=== PATIENT | female | born 1955 | race Caucasian/White ===

== ENCOUNTER 2020-04-10 07:31 | Inpatient (IN) ==
[2020-04-10] MEDS ORDERED: Clindamycin 900 MG/50 ML 900 MG/50 ML IV.SOLN IVPB ONE (07:51)
[2020-04-10] MEDS ORDERED: Lidocaine -MPF 4% 5 ML AMPUL ONE (07:52)
[2020-04-10] MEDS ORDERED: Ringers Solution, Lactated 1,000 ML IVC SCH ×2 (08:00→08:45)
[2020-04-10] MEDS ORDERED: Acetaminophen IV 1,000 MG/100 ML BAG IVPB ONE (08:01)
[2020-04-10] MEDS ORDERED: *HR* Vasopressin 20 UNIT/ML VIAL ONE (08:01)
[2020-04-10] MEDS ORDERED: *HR* Magnesium Sulfate 1 GM/2 ML VIAL ONE (08:07)
[2020-04-10] MEDS ORDERED: *HR* Midazolam HCl 2 MG/2 ML VIAL ONE (08:14)
[2020-04-10] MEDS ORDERED: *HR* Rocuronium Bromide 50 MG/5 ML VIAL ONE ×2 (08:15→09:46)
[2020-04-10] MEDS ORDERED: Ondansetron 4 MG/2 ML VIAL ONE (08:15)
[2020-04-10] MEDS ORDERED: *HR* Succinylcholine 200 MG/10 ML VIAL IVP ONE (08:15)
[2020-04-10] MEDS ORDERED: Sugammadex Sodium 200 MG/2 ML VIAL IV ONE (08:15)
[2020-04-10] MEDS ORDERED: *HR* FentaNYL (PF) 100 MCG/2 ML VIAL ONE (08:15)
[2020-04-10] MEDS ORDERED: *HR* HYDROMORPHONE 2 MG/ML VIAL ONE (08:15)
[2020-04-10] MEDS ORDERED: Lidocaine -MPF 2% 2 ML VIAL ONE (08:15)
[2020-04-10] MEDS ORDERED: *HR* OxyCODONE Immed Rel 5 MG TABLET PO PRN (08:34)
[2020-04-10] MEDS ORDERED: Ondansetron 4 MG/2 ML VIAL IVP PRN ×2 (08:34→11:31)
[2020-04-10] MEDS: *HR* HYDROmorphone PF 0.5 MG/0.5 ML SYRINGE IVP PRN ×3 (10:57→11:08)
[2020-04-10] MEDS ORDERED: *HR* HYDROcodone/Acet 5/325 mg TABLET PO PRN (11:31)
[2020-04-10] MEDS ORDERED: Naloxone 0.4 MG/ML INJ IVP PRN (11:31)
[2020-04-10] MEDS ORDERED: Fluticasone Propionate Nasal 50 MCG/SPRAY BOTTLE NS PRN (11:31)
[2020-04-10] MEDS: 0.9 % Sodium Chloride 1,000 ML IVC SCH (12:13)
[2020-04-10] MEDS: Ketorolac 15 MG/ML VIAL IVP SCH ×2 (12:14→17:12)
[2020-04-10] MEDS: *HR* Heparin 5,000 UNIT/ML VIAL SQ SCH ×2 (14:44→21:11)
[2020-04-10] MEDS ORDERED: Gabapentin 300 MG CAPSULE PO SCH (15:00)
[2020-04-10] MEDS: Ipratropium/Albuterol Neb 3 ML IH SCH ×4 (15:09→23:22)
[2020-04-10] MEDS ORDERED: *HR* HYDROmorphone (PF) 1 MG/ML SYRINGE IVP ONE (16:54)
[2020-04-10] MEDS: Budesonide/Formoterol 160/4.5 1 PUFF INH IH SCH (19:46)
[2020-04-10] MEDS: Gabapentin 300 MG CAPSULE PO SCH (21:10)
[2020-04-10] MEDS: carBAMazepine 200 MG TABLET PO SCH (21:11)
[2020-04-10] MEDS: Famotidine 20 MG TABLET PO SCH (21:11)
[2020-04-10] MEDS: Sennosides/Docusate Sodium TABLET PO SCH (21:14)
[2020-04-10] MEDS: diazePAM 10 MG TABLET PO PRN (21:22)
[2020-04-10] MEDS: *HR* HYDROcodone/Acet 7.5/325 mg TABLET PO PRN (21:22)
[2020-04-11] MEDS: Ketorolac 15 MG/ML VIAL IVP SCH ×4 (00:08→18:17)
[2020-04-11] MEDS: 0.9 % Sodium Chloride 1,000 ML IVC SCH (00:09)
[2020-04-11 01:31] LABS: Hematocrit 38.4 % (35.3-44.9); Hemoglobin 12.2 g/dL (11.5-15.4); Mean Corpuscular HGB Conc 31.8 g/dL (31.6-35.5); Mean Corpuscular Hemoglobin 32.4 pg (28.0-33.3); Mean Corpuscular Volume 101.9 fL (83.0-100.0); Mean Platelet Volume 9.9 fL (9.4-12.4); Platelet Count 167 K/mcL (140-400); Red Blood Count 3.77 M/mcL (3.82-4.97); Red Cell Distribution Width 13.7 % (11.5-14.5); White Blood Count 9.6 K/mcL (4.3-11.1)
[2020-04-11 01:51] LABS: % Iron Saturation 11 % (15-50); BUN/Creatinine Ratio 22 (6-26); Blood Urea Nitrogen 15 mg/dL (8-23); Calcium 8.4 mg/dL (8.6-10.3); Carbon Dioxide 22 mEq/L (23-29); Chloride 106 mEq/L (98-107); Glucose 135 mg/dL (70-105); Iron 38 mcg/dL (50-170); Magnesium 2.1 mg/dL (1.6-2.6); Osmolality,Calculated 285 (280-300); Potassium 4.6 mEq/L (3.5-5.1); Sodium 136 mEq/L (136-145); Transferrin 239 mg/dL (203-362); eGFR For African Americans > 60 (> 60); eGFR For Non-African Americans > 60 (> 60)
[2020-04-11] MEDS: Ipratropium/Albuterol Neb 3 ML IH SCH ×6 (03:24→22:55)
[2020-04-11] MEDS: *HR* Heparin 5,000 UNIT/ML VIAL SQ SCH ×3 (05:57→20:50)
[2020-04-11] MEDS: Budesonide/Formoterol 160/4.5 1 PUFF INH IH SCH ×2 (07:23→19:48)
[2020-04-11] MEDS: Gabapentin 300 MG CAPSULE PO SCH ×3 (07:48→20:51)
[2020-04-11] MEDS: Sennosides/Docusate Sodium TABLET PO SCH ×2 (07:50→21:19)
[2020-04-11] MEDS: carBAMazepine 200 MG TABLET PO SCH ×2 (07:50→20:46)
[2020-04-11] MEDS: Famotidine 20 MG TABLET PO SCH ×2 (07:50→20:49)
[2020-04-11] MEDS: *HR* HYDROcodone/Acet 7.5/325 mg TABLET PO PRN (08:49)
[2020-04-11] MEDS ORDERED: Iron Sucrose Complex 400 MG in 0.9 % Sodium Chloride 250 ML IVPB ONE (11:25)
[2020-04-11] MEDS: diazePAM 10 MG TABLET PO PRN (20:47)
[2020-04-12] MEDS: Ketorolac 15 MG/ML VIAL IVP SCH ×4 (00:38→17:33)
[2020-04-12] MEDS: Ipratropium/Albuterol Neb 3 ML IH SCH ×6 (05:57→22:39)
[2020-04-12] MEDS: *HR* Heparin 5,000 UNIT/ML VIAL SQ SCH ×3 (06:01→20:45)
[2020-04-12] MEDS: Budesonide/Formoterol 160/4.5 1 PUFF INH IH SCH ×2 (07:44→19:31)
[2020-04-12] MEDS: carBAMazepine 200 MG TABLET PO SCH ×2 (08:08→20:45)
[2020-04-12] MEDS: Gabapentin 300 MG CAPSULE PO SCH ×3 (08:08→20:45)
[2020-04-12] MEDS: Famotidine 20 MG TABLET PO SCH ×2 (08:08→20:45)
[2020-04-12] MEDS: diazePAM 10 MG TABLET PO PRN ×2 (08:08→20:45)
[2020-04-12] MEDS: Sennosides/Docusate Sodium TABLET PO SCH ×2 (08:08→20:45)
[2020-04-12] MEDS: *HR* HYDROcodone/Acet 7.5/325 mg TABLET PO PRN ×2 (16:27→20:45)
[2020-04-12] MEDS: *HR* Acetylcysteine 20% 600 MG/3 ML ORAL SYRINGE PO SCH (20:45)
[2020-04-13] MEDS: Ketorolac 15 MG/ML VIAL IVP SCH ×5 (00:30→23:10)
[2020-04-13] MEDS: *HR* HYDROcodone/Acet 7.5/325 mg TABLET PO PRN ×2 (00:41→04:34)
[2020-04-13 01:15] LABS: Hemoglobin 12.1 g/dL (11.5-15.4); Mean Corpuscular Hemoglobin 32.4 pg (28.0-33.3); Mean Corpuscular Volume 101.6 fL (83.0-100.0); Red Blood Count 3.74 M/mcL (3.82-4.97); White Blood Count 9.6 K/mcL (4.3-11.1)
[2020-04-13 01:16] LABS: Mean Corpuscular HGB Conc 31.8 g/dL (31.6-35.5); Mean Platelet Volume 9.6 fL (9.4-12.4); Platelet Count 163 K/mcL (140-400); Red Cell Distribution Width 14.1 % (11.5-14.5)
[2020-04-13 01:31] LABS: BUN/Creatinine Ratio 19 (6-26); Blood Urea Nitrogen 12 mg/dL (8-23); Carbon Dioxide 24 mEq/L (23-29); Chloride 106 mEq/L (98-107); Glucose 117 mg/dL (70-105); Magnesium 2.1 mg/dL (1.6-2.6); Osmolality,Calculated 287 (280-300); Potassium 4.1 mEq/L (3.5-5.1); Sodium 138 mEq/L (136-145); eGFR For African Americans > 60 (> 60); eGFR For Non-African Americans > 60 (> 60)
[2020-04-13] MEDS: Ipratropium/Albuterol Neb 3 ML IH SCH ×6 (03:24→23:15)
[2020-04-13] MEDS: *HR* Heparin 5,000 UNIT/ML VIAL SQ SCH ×3 (06:21→23:05)
[2020-04-13] MEDS: Sennosides/Docusate Sodium TABLET PO SCH ×2 (07:32→19:57)
[2020-04-13] MEDS: diazePAM 10 MG TABLET PO PRN ×2 (07:32→19:26)
[2020-04-13] MEDS: *HR* Acetylcysteine 20% 600 MG/3 ML ORAL SYRINGE PO SCH ×2 (07:32→19:57)
[2020-04-13] MEDS: Gabapentin 300 MG CAPSULE PO SCH ×4 (07:32→19:57)
[2020-04-13] MEDS: carBAMazepine 200 MG TABLET PO SCH ×2 (07:32→19:57)
[2020-04-13] MEDS: Famotidine 20 MG TABLET PO SCH ×2 (07:32→19:57)
[2020-04-13] MEDS: Budesonide/Formoterol 160/4.5 1 PUFF INH IH SCH ×2 (07:35→20:06)
[2020-04-13] MEDS ORDERED: Furosemide 20 MG/2 ML VIAL IVP ONE (08:49)
[2020-04-13] MEDS: *HR* HYDROcodone/Acet 5/325 mg TABLET PO PRN (19:26)
[2020-04-13] MEDS: traZODone 50 MG TABLET PO PRN (19:57)
[2020-04-14] MEDS: *HR* HYDROcodone/Acet 5/325 mg TABLET PO PRN (02:12)
[2020-04-14] MEDS: Ipratropium/Albuterol Neb 3 ML IH SCH ×6 (03:26→23:06)
[2020-04-14] MEDS: *HR* Heparin 5,000 UNIT/ML VIAL SQ SCH ×3 (06:35→20:07)
[2020-04-14] MEDS: Ketorolac 15 MG/ML VIAL IVP SCH ×4 (06:35→22:56)
[2020-04-14] MEDS: Budesonide/Formoterol 160/4.5 1 PUFF INH IH SCH ×2 (08:00→19:41)
[2020-04-14] MEDS: *HR* Acetylcysteine 20% 600 MG/3 ML ORAL SYRINGE PO SCH ×2 (08:12→20:07)
[2020-04-14] MEDS: Famotidine 20 MG TABLET PO SCH ×2 (08:41→20:06)
[2020-04-14] MEDS: carBAMazepine 200 MG TABLET PO SCH ×2 (08:41→20:06)
[2020-04-14] MEDS: Sennosides/Docusate Sodium TABLET PO SCH ×2 (08:41→20:06)
[2020-04-14] MEDS: Gabapentin 300 MG CAPSULE PO SCH ×3 (08:41→20:06)
[2020-04-14] MEDS ORDERED: Furosemide 20 MG TABLET PO ONE (09:00)
[2020-04-14] MEDS: Azithromycin 500 MG in 0.9 % Sodium Chloride 250 ML IVPB SCH (10:50)
[2020-04-14] MEDS: diazePAM 10 MG TABLET PO PRN (20:07)
[2020-04-14] MEDS: traZODone 50 MG TABLET PO PRN (22:56)
[2020-04-15] MEDS: Ipratropium/Albuterol Neb 3 ML IH SCH ×4 (03:32→15:56)
[2020-04-15] MEDS: Ketorolac 15 MG/ML VIAL IVP SCH ×2 (05:21→12:53)
[2020-04-15] MEDS: *HR* Heparin 5,000 UNIT/ML VIAL SQ SCH ×2 (05:22→12:53)
[2020-04-15] MEDS: Budesonide/Formoterol 160/4.5 1 PUFF INH IH SCH (07:15)
[2020-04-15] MEDS: *HR* Acetylcysteine 20% 600 MG/3 ML ORAL SYRINGE PO SCH (07:37)
[2020-04-15] MEDS: Azithromycin 500 MG in 0.9 % Sodium Chloride 250 ML IVPB SCH (07:37)
[2020-04-15] MEDS: Famotidine 20 MG TABLET PO SCH (07:38)
[2020-04-15] MEDS: carBAMazepine 200 MG TABLET PO SCH (07:38)
[2020-04-15] MEDS: Gabapentin 300 MG CAPSULE PO SCH ×2 (07:38→15:03)
[2020-04-15] MEDS: Sennosides/Docusate Sodium TABLET PO SCH (07:39)
[2020-04-15 14:57] VITALS: BP 133/77
== END 2020-04-15 16:50 | disposition home or self-care (01) | DRG 165 ==
LOC: SAMDAY 07:31 → 2NNU 08:24
PROVIDERS: ADMIT Thoracic Surgery (Cardiothoracic Vascular Surgery); ATTEND Thoracic Surgery (Cardiothoracic Vascular Surgery)

== ENCOUNTER 2021-05-11 10:48 | Inpatient (IN) ==
[2021-05-11 11:30] LABS: Basophils # 0.1 K/mcL (0.0-0.2); Basophils % 0.6 %; Eosinophils # 0.1 K/mcL (0.0-0.6); Eosinophils % 0.6 %; Hematocrit 48.3 % (35.3-44.9); Immature Granulocytes % 0.5 % (0-4); Lymphocytes # 4.7 K/mcL (0.6-4.6); Lymphocytes % 39.8 %; Mean Corpuscular HGB Conc 33.1 g/dL (31.6-35.5); Mean Corpuscular Hemoglobin 32.5 pg (28.0-33.3); Mean Platelet Volume 9.8 fL (9.4-12.4); Monocytes # 0.5 K/mcL (0.0-1.3); Monocytes % 4.1 %; Neutrophils # 6.4 K/mcL (1.6-8.9); Platelet Count 215 K/mcL (140-400); Red Blood Count 4.93 M/mcL (3.82-4.97); Red Cell Distribution Width 13.9 % (11.5-14.5); Segmented Neutrophils % 54.4 %; White Blood Count 11.7 K/mcL (4.3-11.1)
[2021-05-11 11:52] LABS: Acetaminophen < 10 mcg/mL (10-20); Alanine Aminotransferase 24 Units/L (7-52); Albumin 4.7 g/dL (3.5-5.7); Albumin/Globulin Ratio 1.8 (1.1-2.2); Alkaline Phosphatase 76 Units/L (34-104); Aspartate Amino Transferase 20 Units/L (13-39); BUN/Creatinine Ratio 17 (6-26); Bilirubin,Direct 0.2 mg/dL (0.0-0.2); Bilirubin,Indirect 0.6 mg/dL (0.0-1.0); Bilirubin,Total 0.8 mg/dL (0.3-1.0); Blood Urea Nitrogen 12 mg/dL (8-23); Calcium 9.6 mg/dL (8.6-10.3); Carbon Dioxide 24 mEq/L (23-29); Chloride 106 mEq/L (98-107); Chol/HDL Ratio 1.8 (0-4.9); Cholesterol 153 mg/dL (< 200); Ethanol < 10 mg/dL (Less than 10); Globulin 2.6 g/dL (2.4-3.5); Glucose 109 mg/dL (70-105); HDL Cholesterol 84 mg/dL (40-59); LDL Cholesterol,Calculated 42 mg/dL (< 100); Osmolality,Calculated 290 (280-300); Potassium 3.8 mEq/L (3.5-5.1); Salicylate < 2.5 mg/dL (15.0-30.0); Sodium 140 mEq/L (136-145); Total Protein 7.3 g/dL (6.4-8.9); Triglycerides 133 mg/dL (< 150); eGFR For African Americans > 60 (> 60); eGFR For Non-African Americans > 60 (> 60)
[2021-05-11 12:03] LABS: Thyroid Stimulating Hormone 2.974 mcIU/mL (0.340-5.600)
[2021-05-11 13:34] LABS: Bilirubin,Urine Negative (Negative); Blood,Urine Negative (Negative); Clarity,Urine Clear (Clear); Color,Urine Yellow (Yellow); Glucose,Urine (UA) Normal (Normal); Hyaline Casts,Urine Few per lpf (None Seen); Ketones,Urine Negative (Negative); Leukocyte Esterase,Urine Trace (Negative); Mucus,Urine Few per lpf (None-Few); Nitrite,Urine Negative (Negative); PH,Urine 6.5 pH Units (5.0-8.0); Protein,Urine Trace mg/dL (Neg-Trace); RBC,Urine 0-3 per hpf (0-3); Specific Gravity,Urine 1.019 (1.010-1.025); Squamous Epithelial Cell,Urine Moderate per hpf (None-Few)
[2021-05-11 13:48] LABS: Amphetamine Screen,Urine Negative ng/mL (Cutoff=1000); Barbiturate Screen,Urine Negative ng/mL (Cutoff=200); Benzodiazepines Screen,Urine Positive ng/mL (Cutoff=200); Cannabinoid Screen,Urine Negative ng/mL (Cutoff = 50); Cocaine Screen,Urine Negative ng/mL (Cutoff= 300); Opiate Screen,Urine Negative ng/mL (Cutoff=300); Phencyclidine Screen,Urine Negative ng/mL (Cutoff=25)
[2021-05-11 14:32] LABS: Estimated Average Glucose 120 mg/dl; Hemoglobin A1C 5.8 %
[2021-05-11] MEDS ORDERED: Acetaminophen 325 MG TABLET PO ONE (14:57)
[2021-05-11 18:21] LABS: Influenza A PCR Negative (Negative); Influenza B PCR Negative (Negative); Resp. Syncytial Virus PCR Negative (Negative); SARS-CoV-2 by PCR (In House) Negative (Negative)
[2021-05-11] MEDS ORDERED: diazePAM 10 MG TABLET PO ONE (20:02)
[2021-05-11] MEDS ORDERED: Gabapentin 300 MG CAPSULE PO ONE (20:02)
[2021-05-12] MEDS: diazePAM 10 MG TABLET PO SCH (12:02)
[2021-05-12] MEDS ORDERED: hydrOXYzine pamoate 25 MG CAPSULE PO PRN (14:49)
[2021-05-12] MEDS ORDERED: *HR* LORazepam 2 MG/ML VIAL IM PRN (14:49)
[2021-05-12] MEDS ORDERED: haloperidoL 5 MG TABLET PO PRN (14:49)
[2021-05-12] MEDS ORDERED: Haloperidol Lactate 5 MG/ML VIAL IM PRN (14:49)
[2021-05-12] MEDS ORDERED: Acetaminophen 325 MG TABLET PO PRN (14:49)
[2021-05-12] MEDS ORDERED: *HR* LORazepam 1 MG TABLET PO PRN (14:49)
[2021-05-12] MEDS ORDERED: diazePAM 5 MG TABLET PO PRN (14:56)
[2021-05-12] MEDS ORDERED: Gabapentin 300 MG CAPSULE PO SCH (15:00)
[2021-05-12] MEDS: Gabapentin 300 MG CAPSULE PO SCH ×2 (16:26→21:00)
[2021-05-12] MEDS: traZODone 50 MG TABLET PO PRN (21:00)
[2021-05-12] MEDS: Budesonide/Formoterol 160/4.5 1 PUFF INH IH SCH (21:55)
[2021-05-13] MEDS: diazePAM 10 MG TABLET PO SCH (08:47)
[2021-05-13] MEDS: Gabapentin 300 MG CAPSULE PO SCH ×3 (08:47→20:59)
[2021-05-13] MEDS: Linaclotide [Linzess] 72 MCG Capsule PO SCH (08:50)
[2021-05-13] MEDS: Budesonide/Formoterol 160/4.5 1 PUFF INH IH SCH ×2 (09:01→20:59)
[2021-05-13] MEDS ORDERED: MOM Conc 10 ML UD.LIQ PO PRN (14:14)
[2021-05-13] MEDS: Mag Hydrox/Al Hydrox/Simeth 30 ML UDC PO PRN ×2 (18:36→22:10)
[2021-05-13] MEDS: traZODone 50 MG TABLET PO PRN (21:00)
[2021-05-13] MEDS ORDERED: ARIPiprazole 2 MG TABLET PO SCH (21:00)
[2021-05-14] MEDS: Gabapentin 300 MG CAPSULE PO SCH ×2 (09:00→15:20)
[2021-05-14] MEDS: diazePAM 10 MG TABLET PO SCH (09:00)
[2021-05-14] MEDS: Budesonide/Formoterol 160/4.5 1 PUFF INH IH SCH (09:01)
[2021-05-14] MEDS: Linaclotide [Linzess] 72 MCG Capsule PO SCH (09:04)
[2021-05-14 09:24] VITALS: BP 111/76; PULSE 76; TEMP 98.4; O2SAT 95
== END 2021-05-14 16:10 | disposition home or self-care (01) | DRG 885 ==
LOC: EMEROOARM 10:48 → 1ANU 05-12 14:17
PROVIDERS: ADMIT Psychiatry & Neurology Psychiatry; ATTEND Psychiatry & Neurology Psychiatry